=== PATIENT | female | born 2000 | race Caucasian/White ===

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

== ENCOUNTER 2024-02-16 01:04 | Emergency (ER) | payer OTHER ==
[2024-02-16 01:26] VITALS: BP 112/70; PULSE 82; RESP 18; TEMP 98; BMI 25.4
[2024-02-16] MEDS ORDERED: DEXAMETHASONE SOD PHOSPHATE 10 MG/1 ML VIAL ONE (01:55)
[2024-02-16] MEDS: DEXAMETHASONE LIQUID 0.5 MG/5 ML PO ONE (01:57)
== END 2024-02-16 03:56 | disposition home or self-care (01) ==
LOC: JER 01:04
DX: T78.40XA Allergy, unspecified, initial encounter (principal); L50.9 Urticaria, unspecified
CPT/HCPCS: 99283-25